=== PATIENT | female | born 1970 | race African-American/Black ===

== ENCOUNTER 2016-12-10 09:21 | Emergency (ER) | payer SELFPAY ==
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
[2016-12-10] MEDS ORDERED: NORCO 5/325 PO ONE (12:14)
[2016-12-10] MEDS ORDERED: TORADOL IM ONE (12:14)
[2016-12-10] MEDS ORDERED: DELTASONE PO ONE (12:14)
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
[2016-12-10 13:15] VITALS: BP 109/77
== END 2016-12-10 13:14 | disposition home or self-care (01) ==
LOC: ED 09:21
DX: G43.109 Migraine with aura, not intractable, without status migrainosus (principal); M25.512 Pain in left shoulder; M19.012 Primary osteoarthritis, left shoulder; M19.90 Unspecified osteoarthritis, unspecified site; V89.2XXA Person injured in unspecified motor-vehicle accident, traffic, initial encounter; Y93.89 Activity, other specified; Y99.9 Unspecified external cause status; Y92.410 Unspecified street and highway as the place of occurrence of the external cause
CPT/HCPCS: 96372; 99282; J1885; J7512

== ENCOUNTER 2017-12-21 15:10 | Emergency (ER) | payer OTHER ==
[2017-12-21 15:46] VITALS: BP 114/84
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
[2017-12-21] MEDS ORDERED: FLEXERIL PO ONE (19:05)
[2017-12-21] MEDS ORDERED: NORCO 5/325 PO ONE (19:05)
== END 2017-12-21 20:45 | disposition home or self-care (01) ==
LOC: ED 15:10
DX: M25.512 Pain in left shoulder (principal); R07.89 Other chest pain; M19.90 Unspecified osteoarthritis, unspecified site; G43.909 Migraine, unspecified, not intractable, without status migrainosus; Z98.51 Tubal ligation status; V89.2XXA Person injured in unspecified motor-vehicle accident, traffic, initial encounter; Y93.89 Activity, other specified; Y92.488 Other paved roadways as the place of occurrence of the external cause; Y99.8 Other external cause status
CPT/HCPCS: 93005; 93010; 99283